=== PATIENT | female | born 1990 | race Caucasian/White ===

== ENCOUNTER 2017-11-02 11:11 | Emergency (ER) | payer OTHER ==
[~2017-11-02] VITALS: Ht 157.5 cm; Wt 76.5 kg
[~2017-11-02 11:11] MED LIST: PREN-15
[2017-11-02 11:13] VITALS: Ht 157.5 cm; Wt 76.5 kg
[2017-11-02] MEDS ORDERED: DEXAMETHASONE 10 MG/ML 1 ML INJ PO ONE (13:00)
[2017-11-02] MEDS ORDERED: DIPHENHYDRAMINE 50 MG CAP PO ONE (13:00)
[2017-11-02] MEDS ORDERED: BEN50 PO (13:34)
--- NOTE | 2017-11-02 15:55 | ERD ---
ER Documentation Chief Complaint Chief Complaint right foot pain/swelling x 2 days, possible insect bite HPI 26-year-old female complaining of right foot pain and swelling 2 days. Patient stated that she had a insect bite on her dorsal right foot 2 nights ago. Been itching. Yesterday the foot became swollen. Denies fever or chills. Denies shortness of breath. ROS All systems reviewed and are negative except as per history of present illness. Medications Home Meds Active Scripts Diphenhydramine Hcl* (Benadryl*) 50 Mg Cap, 50 MG PO Q6H Y for ITCHING/RASH, # 30 CAP Prov:ANGEL HAJI. SHOE LACER 11/02/17 Reported Medications Vit/Fe Fumarate/Fa (Prenafirst Tablet) 1 Tab Tablet, 1 02/07/12 Allergies Allergies: Coded Allergies: No Known Allergy (Unverified , 07/09/13) PMhx/Soc Medical and Surgical Hx: pt denies Medical Hx, pt denies Surgical Hx History of Surgery: No Anesthesia Reaction: No Hx Neurological Disorder: No Hx Respiratory Disorders: No Hx Cardiac Disorders: No Hx Psychiatric Problems: No Hx Miscellaneous Medical Probl: No Hx Alcohol Use: No Hx Substance Use: No Hx Tobacco Use: No Smoking Status: Never smoker Physical Exam Vitals Vital Signs Date Time Temp Pulse Resp B/P Pulse Ox O2 Delivery O2 Flow Rate FiO2 11/02/17 11:13 98.2 78 18 131/58 99 Physical Exam General: Well-developed, well-nourished, conscious and coherent, in no distress Skin: Warm and dry without rash, good texture and turgor Head: Normocephalic without evidence of trauma Eyes: Sclera and conjunctivae normal; pupils equal, round, and reactive to light; extraocular movements are intact Mouth/throat: Mucous membranes are moist. Posterior pharynx clear without erythema or exudates Chest: Normal AP diameter. Good expansion without retractions. Nontender. Lungs are clear to auscultate bilaterally with good tidal volume Heart: Regular rate and rhythm. No murmur, rub, or gallops heard Extremities: Dorsal right foot diffusely edematous, nontender, without erythema or warmth. Full range of motion. Good strength bilaterally. No clubbing, cyanosis, or edema. Peripheral pulses are intact. Sensation intact Neuro: Alert and oriented 4, GCS 15. Cranial nerves grossly intact. Motor and sensory exams nonfocal. Moves all extremities. Speech clear. Gait normal Results 24 hrs Current Medications Medications (Trade) Dose Ordered Sig/Jon Route PRN Reason Start Time Stop Time Status Last Admin Dose Admin Dexamethasone (Decadron) 10 mg ONCE ONCE PO 11/02/17 13:00 12 13:01 DC 11/02/17 12:56 Diphenhydramine HCl (Benadryl) 50 mg ONCE ONCE PO 11/02/17 13:00 11/02/17 13:01 DC 11/02/17 12:56 Procedures/MDM Well-appearing 26-year-old female presented ED with what appears to be a large local reaction of insect bite. No sign of anaphylaxis. I doubt cellulitis. Patient given dexamethasone 10 mg p.o. and Benadryl 50 mg p.o. in the ED. Patient reports symptomatic improvement after medications. Patient appears well, stable for discharge and outpatient management. Medical decision making shared with patient and family. Education provided to patient and family. Patient and family expressed understanding of the plan. Medications on discharge: Benadryl. Follow-up: Primary care provider in 2-3 days or return to ED if worse. Disclaimer: Inadvertent spelling and grammatical errors are likely due to EHR/ dictation software use and do not reflect on the overall quality of patient care. Also, please note that the electronic time recorded on this note does not necessarily reflect the actual time of the patient encounter. Departure Diagnosis: Primary Impression: Insect bite of foot with local reaction Condition: Stable Patient Instructions: Allergic Reaction, Insect (Local) Additional Instructions: Call your primary care doctor TOMORROW for an appointment during the next 1 WEEK.Tell the national secretary that you were referred from this facility.See the doctor sooner or return here if your condition worsens before your appointment time. ANGEL HAJI NP Nov 02, 2017 15:55
== END 2017-11-02 13:20 | disposition home or self-care (01) ==
LOC: FTE 11:11
DX: S90.861A Insect bite (nonvenomous), right foot, initial encounter (principal); L08.89 Other specified local infections of the skin and subcutaneous tissue; W57.XXXA Bitten or stung by nonvenomous insect and other nonvenomous arthropods, initial encounter; Y92.9 Unspecified place or not applicable
CPT/HCPCS: J1100; Z7610; 99283